=== PATIENT | female | born 1990 ===

== ENCOUNTER → 2022-10-26 | Outpatient (CLI) | payer BC | END | disposition home or self-care (01) | LOC: LAB SHORT 13:50 → LAB 13:50 | DX: R30.0 Dysuria (principal) | CPT/HCPCS: 87086 ==

== ENCOUNTER → 2023-01-30 | Outpatient (CLI) | payer BC | LOC: LAB SHORT 12:19 | DX: R30.0 Dysuria (principal) | CPT/HCPCS: 87077; 87086; 87186 ==

== ENCOUNTER → 2023-10-22 | Outpatient (CLI) | payer BC | END | disposition home or self-care (01) | LOC: LAB SHORT 15:19 → LAB 15:19 | DX: R30.0 Dysuria (principal) | CPT/HCPCS: 87086 ==